=== PATIENT | male | born 1975 | race Caucasian/White ===

== ENCOUNTER 2017-07-24 10:50 | Emergency (ER) | payer SELFPAY ==
--- NOTE | 2017-07-24 13:12 | ED ---
GI/ HPI - HPI Summary HPI Summary: Pt here w/ FB in tip of penis. Thinks he's been passing a kidney stone since . Has a white, sharp object in urethra today - has a lot of pressure behind this and pain is focal to this area only. Dneies fever, chills, N/V/D, ab pain, flank pain. - History of Current Complaint Chief Complaint: EDUrogenitalProblems Time Seen by Provider: 07/24/17 11:22 Stated Complaint: NEEDS ANTIBIOTICS Hx Obtained From: Patient, Family/Professor Of Theology - father - reports he himself passed a stone so large urologist were surprised he passed it on his own Pain Intensity: 1 - Allergy/Home Medications Allergies/Adverse Reactions: Allergies Allergy/AdvReac Type Severity Reaction Status Date / Time Pollen Extract Allergy Mild watery Verified 03/25/14 08:45 eyes sneezing PMH/Surg Hx/FS Hx/Imm Hx Previously Healthy: Yes Endocrine/Hematology History: Denies: Hx Anticoagulant Therapy, Hx Blood Disorders, Hx Blood Transfusions, Hx Bone Marrow Disease, Hx Diabetes, Hx Systemic Lupus Erythematosus, Hx Sickle Cell Disease, Hx Thyroid Disease, Hx Anemia, Hx Unexplained Bleeding, Other Endocrine/Hematological Disorders Cardiovascular History: Denies: Hx Aneurysm, Hx Angina, Hx Angioplasty, Hx Auto Implanted Cardiovert Defib, Hx Cardiac Arrest, Hx Cardiomegaly, Hx Congenital Heart Disease, Hx Congestive Heart Failure, Hx Coronary Artery Disease, Hx Deep Vein Thrombosis, Hx Embolism, Hx Hypercholesterolemia, Hx Hypotension, Hx Hypertension, Hx Pacemaker/ICD, Hx Peripheral Vascular Disease, Hx Rheumatic Fever, Hx Syncope, Hx Valvular Heart Disease, Other Cardiovascular Problems/Disorders Respiratory History: Reports: Hx Seasonal Allergies Denies: Hx Asthma, Hx Chronic Bronchitis, Hx Chronic Obstructive Pulmonary Disease (COPD), Hx Cystic Fibrosis, Hx Lung Cancer, Hx Pleural Effusion, Hx Pneumonia, Hx Pulmonary Edema, Hx Pulmonary Embolism, Hx Sleep Apnea, Other Respiratory Problems/Disorders GI History: Denies: Hx Cirrhosis, Hx Crohn's Disease, Hx Diverticulosis - CURRENT DX OF PERFED DIVERTICULITIS, Hx Gall Bladder Disease, Hx Gastroesophageal Reflux Disease, Hx Gastrointestinal Bleed, Hx Hiatal Hernia, Hx Irritable Bowel, Hx Jaundice, Hx Obstructive Bowel, Hx Ileostomy, Hx Pyloric Stenosis, Hx Ulcer History: Denies: Hx Acute Renal Failure, Hx Benign Prostatic Hyperplasia, Hx Chronic Renal Failure, Hx Dialysis, Hx Kidney Infection, Hx Kidney Stones, Other Problems/Disorders Musculoskeletal History: Reports: Hx Back Problems - PULLED BACK MUSCLE FEW MONTHS AGO Denies: Hx Arthritis, Hx Bursitis, Hx Congenital Bone Abnormalities, Hx Fibromyalgia, Hx Gout, Hx Orthopedic Injury, Hx Osteoporosis, Hx Scoliosis, Hx Tendonitis, Other Musculoskeletal History Sensory History: Denies: Hx Cataracts, Hx Contacts or Glasses, Hx Eye Injury, Hx Eye Prosthesis, Hx Glaucoma, Hx Legally Blind, Hx Macular Degeneration, Hx Vision Problem, Hx Deafness, Hx Hearing Aid, Hx Hearing Problem, Other Sensory Impairments Opthamlomology History: Denies: Hx Cataracts, Hx Contacts or Glasses, Hx Eye Injury, Hx Eye Prosthesis, Hx Glaucoma, Hx Legally Blind, Hx Macular Degeneration, Hx Vision Problem, Other Sensory Impairments Neurological History: Denies: Hx Dementia, Hx Developmental Delay, Hx Headaches, Hx Migraine, Hx Nerve Disease, Hx Seizures, Hx Spinal Cord Injury, Hx Transient Ischemic Attacks (TIA), Other Neuro Impairments/Disorders Psychiatric History: Reports: Hx Substance Abuse - RECREATIONAL MARIJUANA Denies: Hx Anxiety, Hx Attention Deficit Hyperactivity Disorder, Hx Eating Disorder, Hx Depression, Hx Panic Disorder, Hx Post Traumatic Stress Disorder, Hx Inpatient Treatment, Hx Community Mental Health Tx, Hx Schizophrenia, Hx Bipolar Disorder, Hx Suicide Attempt, Hx of Violent Episodes Against Others, Other Psychiatric Issues/Disorders - Surgical History Surgery Procedure, Year, and Place: circumcision as adult 2009 Hx Anesthesia Reactions: No Infectious Disease History: No Infectious Disease History: Denies: Hx Clostridium Difficile, Hx Hepatitis, Hx Human Immunodeficiency Virus (HIV), Hx of Known/Suspected MRSA, Hx Shingles, Hx Tuberculosis, Hx Known/ Suspected VRE, Hx Known/Suspected VRSA, History Other Infectious Disease, Traveled Outside the [place] in Last 30 Days - Social History Alcohol Use: None Substance Use Type: Reports: Marijuana Substance Use Comment - Amount & Last Used: 03/24/14 Smoking Status (MU): Heavy Every Day Tobacco Smoker Type: Cigarettes Length of Time of Smoking/Using Tobacco: 13 Have You Smoked in the Last Year: Yes Physical Exam Vital Signs On Initial Exam: Initial Vitals Temp Pulse Resp BP Pulse Ox 99.4 F 79 16 135/74 98 07/24/17 10:51 07/24/17 10:51 07/24/17 10:51 07/24/17 10:51 07/24/17 10:51 - Leslie Coma Scale Coma Scale Total: 15 Diagnostics - Vital Signs Vital Signs Temp Pulse Resp BP Pulse Ox 07/24/17 10:51 99.4 F 79 16 135/74 98 - Laboratory Lab Statement: Any lab studies that have been ordered have been reviewed, and results considered in the medical decision making process. GIGU Course/Dx - Course Course Of Treatment: Pt appears to have passed a kidney stone today while in ED. He presented w/ FB observed at urethral opening - passed it while here. Collected stone nad sent for analysis. He plans to f/u w/ Dr. Thomas this week. Labs are ,,,,. Reviewed danger s/sx of when to return to ED. Pt agrees w / plan. - Diagnoses Provider Diagnoses: Lower urinary tract calculus Discharge - Discharge Plan Condition: Stable Disposition: HOME Patient Education Materials: Kidney Stones (ED) Forms: *Work Release Referrals: Joseph Thomas MD [Medical Doctor] - Additional Instructions: You appear to have passed a kidney stone today - this was sent to the lab for analysis. It is important that you follow-up with Dr. Thomas to discuss results as soon as they return and review prevention/treatment plan. Call Wednesday to schedule your appointment. In the meantime, avoid caffeine and drink plenty of liquids - water, etc. *If in the meantime, you develop return of pain, change in urination, fever, chills, abdominal pain, vomiting, return to ED
[2017-07-24 13:14] LABS: Urine Bacteria 1+ (Absent); Urine Bilirubin Negative (Negative); Urine Glucose Negative (Negative); Urine Nitrite Negative (Negative)
[2017-07-24 13:43] LABS: Hematocrit 41 % (42-52); Hemoglobin 13.9 g/dl (14.0-18.0); Mean Corpuscular HGB Conc 34 g/dl (31-36); Mean Corpuscular Hemoglobin 31 pg (27-31); Mean Corpuscular Volume 91 fL (80-94); Mean Platelet Volume 7 um3 (7.4-10.4); Red Blood Count 4.49 10^6/ul (4.0-5.4); Red Cell Distribution Width 13 % (10.5-15); White Blood Count 11.4 10^3/ul (3.5-10.8)
[2017-07-24 13:56] LABS: BUN/Creatinine Ratio 17.6 (8-20); C Reactive Protein 6.71 mg/L (< 5.00); Calcium 9.3 mg/dL (8.6-10.3); EGFR African American 150.7 (>60); EGFR Non-African American 117.1 (>60); Potassium 3.9 mmol/L (3.5-5.0)
[2017-07-24 14:27] VITALS: BP 143/70
== END 2017-07-24 14:26 | disposition home or self-care (01) ==
LOC: ED 10:50
DX: N21.9 Calculus of lower urinary tract, unspecified (principal)
CPT/HCPCS: 36415; 80048; 81003; 81015; 82365; 83605; 85025; 86140; 87086; 88300; 99282

== ENCOUNTER 2018-03-13 00:37 | Emergency (ER) | payer SELFPAY ==
[2018-03-13] MEDS ORDERED: Clindamycin CAP* 150 MG PO ONE (02:18)
--- NOTE | 2018-03-13 02:19 | ED ---
Complex/Multi-Sys Presentation - HPI Summary HPI Summary: This is merrill Perodmo documenting for attending Dr. Tonya Vegas MD. Pt is 42 y/o M who presents to ED c/o dental pain since yesterday. Today the pain is less than yesterday, but he noted left side of his face was swollen today. Rates his pain a 7/10 in severity and describes it as aching. Denies fever. He has neglected teeth for a while. - History Of Current Complaint Chief Complaint: EDDentalPain Time Seen by Provider: 03/13/18 02:13 Hx Obtained From: Patient Onset/Duration: Lasting Hours, Still Present Severity Currently: Moderate - 7/10 Location: Pain At: - Teeth Character: Unable To Describe - Aching Associated Signs And Symptoms: Positive: Other - Dental Pain, left side of face swollen. Negative: Fever - Allergies/Home Medications Allergies/Adverse Reactions: Allergies Allergy/AdvReac Type Severity Reaction Status Date / Time MS Pollen Extract Allergy Mild watery Verified 03/25/14 08:45 [Pollen Extract] eyes sneezing PMH/Surg Hx/FS Hx/Imm Hx Endocrine/Hematology History: Denies: Hx Anticoagulant Therapy, Hx Blood Disorders, Hx Blood Transfusions, Hx Bone Marrow Disease, Hx Diabetes, Hx Systemic Lupus Erythematosus, Hx Sickle Cell Disease, Hx Thyroid Disease, Hx Anemia, Hx Unexplained Bleeding, Other Endocrine/Hematological Disorders Cardiovascular History: Denies: Hx Aneurysm, Hx Angina, Hx Angioplasty, Hx Auto Implanted Cardiovert Defib, Hx Cardiac Arrest, Hx Cardiomegaly, Hx Congenital Heart Disease, Hx Congestive Heart Failure, Hx Coronary Artery Disease, Hx Deep Vein Thrombosis, Hx Embolism, Hx Hypercholesterolemia, Hx Hypotension, Hx Hypertension, Hx Pacemaker/ICD, Hx Peripheral Vascular Disease, Hx Rheumatic Fever, Hx Syncope, Hx Valvular Heart Disease, Other Cardiovascular Problems/Disorders Respiratory History: Reports: Hx Seasonal Allergies Denies: Hx Asthma, Hx Chronic Bronchitis, Hx Chronic Obstructive Pulmonary Disease (COPD), Hx Cystic Fibrosis, Hx Lung Cancer, Hx Pleural Effusion, Hx Pneumonia, Hx Pulmonary Edema, Hx Pulmonary Embolism, Hx Sleep Apnea, Other Respiratory Problems/Disorders GI History: Denies: Hx Cirrhosis, Hx Crohn's Disease, Hx Diverticulosis - CURRENT DX OF PERFED DIVERTICULITIS, Hx Gall Bladder Disease, Hx Gastroesophageal Reflux Disease, Hx Gastrointestinal Bleed, Hx Hiatal Hernia, Hx Irritable Bowel, Hx Jaundice, Hx Obstructive Bowel, Hx Ileostomy, Hx Pyloric Stenosis, Hx Ulcer History: Denies: Hx Acute Renal Failure, Hx Benign Prostatic Hyperplasia, Hx Chronic Renal Failure, Hx Dialysis, Hx Kidney Infection, Hx Kidney Stones, Other Problems/Disorders Musculoskeletal History: Reports: Hx Back Problems - PULLED BACK MUSCLE FEW MONTHS AGO Denies: Hx Arthritis, Hx Bursitis, Hx Congenital Bone Abnormalities, Hx Fibromyalgia, Hx Gout, Hx Orthopedic Injury, Hx Osteoporosis, Hx Scoliosis, Hx Tendonitis, Other Musculoskeletal History Sensory History: Denies: Hx Cataracts, Hx Contacts or Glasses, Hx Eye Injury, Hx Eye Prosthesis, Hx Glaucoma, Hx Legally Blind, Hx Macular Degeneration, Hx Vision Problem, Hx Deafness, Hx Hearing Aid, Hx Hearing Problem, Other Sensory Impairments Opthamlomology History: Denies: Hx Cataracts, Hx Contacts or Glasses, Hx Eye Injury, Hx Eye Prosthesis, Hx Glaucoma, Hx Legally Blind, Hx Macular Degeneration, Hx Vision Problem, Other Sensory Impairments Neurological History: Denies: Hx Dementia, Hx Developmental Delay, Hx Headaches, Hx Migraine, Hx Nerve Disease, Hx Seizures, Hx Spinal Cord Injury, Hx Transient Ischemic Attacks (TIA), Other Neuro Impairments/Disorders Psychiatric History: Reports: Hx Substance Abuse - RECREATIONAL MARIJUANA Denies: Hx Anxiety, Hx Attention Deficit Hyperactivity Disorder, Hx Eating Disorder, Hx Depression, Hx Panic Disorder, Hx Post Traumatic Stress Disorder, Hx Inpatient Treatment, Hx Community Mental Health Tx, Hx Schizophrenia, Hx Bipolar Disorder, Hx Suicide Attempt, Hx of Violent Episodes Against Others, Other Psychiatric Issues/Disorders - Surgical History Surgery Procedure, Year, and Place: circumcision as adult 2009 Hx Anesthesia Reactions: No Infectious Disease History: No Infectious Disease History: Denies: Hx Clostridium Difficile, Hx Hepatitis, Hx Human Immunodeficiency Virus (HIV), Hx of Known/Suspected MRSA, Hx Shingles, Hx Tuberculosis, Hx Known/ Suspected VRE, Hx Known/Suspected VRSA, History Other Infectious Disease, Traveled Outside the [place] in Last 30 Days - Family History Known Family History: Positive: Hypertension, Diabetes - Social History Alcohol Use: None Substance Use Type: Reports: Marijuana Substance Use Comment - Amount & Last Used: 03/24/14 Smoking Status (MU): Heavy Every Day Tobacco Smoker Type: Cigarettes Length of Time of Smoking/Using Tobacco: 13 Have You Smoked in the Last Year: Yes Review of Systems Negative: Fever Positive: Dental Pain All Other Systems Reviewed And Are Negative: Yes Physical Exam - Summary Physical Exam Summary: VITAL SIGNS: Reviewed. GENERAL: Patient is a well-developed and nourished male who is lying comfortable in the stretcher. Patient is not in any acute respiratory distress. HEAD AND FACE: Swelling of left side of face. No signs of trauma. No ecchymosis , hematomas or skull depressions. No sinus tenderness. EYES: PERRLA, EOMI x 2, No injected conjunctiva, no nystagmus. EARS: Hearing grossly intact. Ear canals and tympanic membranes are within normal limits. MOUTH: Tenderness over left upper gum with dentation. NECK: Supple, trachea is midline, no adenopathy, no JVD, no carotid bruit, no c- spine tenderness, neck with full ROM. CHEST: Symmetric, no tenderness at palpation LUNGS: Clear to auscultation bilaterally. No wheezing or crackles. CVS: Regular rate and rhythm, S1 and S2 present, no murmurs or gallops appreciated. ABDOMEN: Soft, non-tender. No signs of distention. No rebound no guarding, and no masses palpated. Bowel sounds are normal. EXTREMITIES: FROM in all major joints, no edema, no cyanosis or clubbing. NEURO: Alert and oriented x 3. No acute neurological deficits. Speech is normal and follows commands. SKIN: Dry and warm Triage Information Reviewed: Yes Vital Signs On Initial Exam: Initial Vitals Temp Pulse Resp BP Pulse Ox 97.8 F 79 18 142/79 99 03/13/18 00:44 03/13/18 00:44 03/13/18 00:44 03/13/18 00:44 03/13/18 00:44 Vital Signs Reviewed: Yes Diagnostics - Vital Signs Vital Signs Temp Pulse Resp BP Pulse Ox 03/13/18 00:44 97.8 F 79 18 142/79 99 - Laboratory Lab Statement: Any lab studies that have been ordered have been reviewed, and results considered in the medical decision making process. Complex Multi-Symp Course/Dx Course Of Treatment: Pt is 42 y/o M who presents to ED c/o dental pain since yesterday. Rates his pain a 7/10 in severity. Notes left side facial swelling and denies fever. Physical exam revealed swelling of left side of face and tenderness over left upper gum with dentation. In the ED course pt was given Cleocin. Pt does not want any pain medication and is given a prescription of Clindamycin. Pt is diagnosed with gingivitis and toothe ache and discharged home. He is told to follow up with his dentist and is agreeable with this plan. - Diagnoses Provider Diagnoses: Gingivitis, Tooth ache Discharge - Sign-Out/Discharge Documenting (check all that apply): Patient Departure - Discharge - Discharge Plan Condition: Stable Disposition: HOME Prescriptions: Clindamycin Cap(NF) [Clindamycin Cap 300 mg Cap(NF)] 300 mg PO Q6H #30 cap Patient Education Materials: Gingivitis (ED), Toothache (ED) Referrals: [facility] [Outside] Additional Instructions: Follow up with your dentist on Wednesday. RETURN TO ED FOR ANY NEW OR WORSENING SYMPTOMS.
[2018-03-13 02:54] VITALS: BP 144/86
== END 2018-03-13 02:53 | disposition home or self-care (01) ==
LOC: ED 00:37
DX: K05.10 Chronic gingivitis, plaque induced (principal); K08.89 Other specified disorders of teeth and supporting structures; F17.210 Nicotine dependence, cigarettes, uncomplicated
CPT/HCPCS: 99282; A9270-GY

== ENCOUNTER 2019-10-29 21:09 | Emergency (ER) | payer SELFPAY ==
[2019-10-29 21:12] VITALS: BP 136/81
--- NOTE | 2019-10-29 21:20 | ED ---
Complex/Multi-Sys Presentation - HPI Summary HPI Summary: 44 y/o male presented to [facility] for right sided swelling in his mouth and a claimed abscess. Pain currently rated 3/10 has been present for days and pt notes pain has worsened since 3 days ago. He has been taking ibuprofen for pain. Pt was seen in the ED previously for right sided facial swelling without pain. Pt notes hx of an adult circumcision. Pt smokes cigarettes and is trying to quit, and also smokes marijuana. He does not drink alcohol. Medications reviewed. Allergies noted. Home Medications Medication Instructions Recorded Confirmed Type Sennosides [Ex-Lax] 15 mg PO DAILY PRN 03/25/14 03/13/18 History Clindamycin Cap(NF) [Clindamycin 300 mg PO Q6H #30 cap 03/13/18 Rx Cap 300 mg Cap(NF)] Clindamycin Cap(NF) [Clindamycin 300 mg PO Q6H #30 cap 03/13/18 Rx Cap 300 mg Cap(NF)] Amoxicillin/Clavulanate TAB* 875 mg PO BID 7 Days #14 tab 10/29/19 Rx [Augmentin TAB 875*] - History Of Current Complaint Chief Complaint: EDDentalPain Time Seen by Provider: 10/29/19 21:14 Hx Obtained From: Patient Onset/Duration: Lasting Days, Still Present Timing: Days Severity Currently: Mild Location: Pain At: - right side of mouth Related History: Similar Episode/Diagnosed As: - previous facial swelling without pain - Allergies/Home Medications Allergies/Adverse Reactions: Allergies Allergy/AdvReac Type Severity Reaction Status Date / Time pollen extracts Allergy Sneezing Verified 10/29/19 21:13 Home Medications: Home Medications Amoxicillin/Clavulanate TAB* [Augmentin TAB 875*] 875 mg PO BID 7 Days #14 tab 10/29/19 [Rx] PMH/Surg Hx/FS Hx/Imm Hx Endocrine/Hematology History: Denies: Hx Anticoagulant Therapy, Hx Blood Disorders, Hx Blood Transfusions, Hx Bone Marrow Disease, Hx Diabetes, Hx Systemic Lupus Erythematosus, Hx Sickle Cell Disease, Hx Thyroid Disease, Hx Anemia, Hx Unexplained Bleeding, Other Endocrine/Hematological Disorders Cardiovascular History: Denies: Hx Aneurysm, Hx Angina, Hx Angioplasty, Hx Auto Implanted Cardiovert Defib, Hx Cardiac Arrest, Hx Cardiomegaly, Hx Congenital Heart Disease, Hx Congestive Heart Failure, Hx Coronary Artery Disease, Hx Deep Vein Thrombosis, Hx Embolism, Hx Hypercholesterolemia, Hx Hypotension, Hx Hypertension, Hx Pacemaker/ICD, Hx Peripheral Vascular Disease, Hx Rheumatic Fever, Hx Syncope, Hx Valvular Heart Disease, Other Cardiovascular Problems/Disorders Respiratory History: Reports: Hx Seasonal Allergies Denies: Hx Asthma, Hx Chronic Bronchitis, Hx Chronic Obstructive Pulmonary Disease (COPD), Hx Cystic Fibrosis, Hx Lung Cancer, Hx Pleural Effusion, Hx Pneumonia, Hx Pulmonary Edema, Hx Pulmonary Embolism, Hx Sleep Apnea, Other Respiratory Problems/Disorders GI History: Denies: Hx Cirrhosis, Hx Crohn's Disease, Hx Diverticulosis - CURRENT DX OF PERFED DIVERTICULITIS, Hx Gall Bladder Disease, Hx Gastroesophageal Reflux Disease, Hx Gastrointestinal Bleed, Hx Hiatal Hernia, Hx Irritable Bowel, Hx Jaundice, Hx Obstructive Bowel, Hx Ileostomy, Hx Pyloric Stenosis, Hx Ulcer History: Denies: Hx Acute Renal Failure, Hx Benign Prostatic Hyperplasia, Hx Chronic Renal Failure, Hx Dialysis, Hx Kidney Infection, Hx Kidney Stones, Other Problems/Disorders Musculoskeletal History: Reports: Hx Back Problems - PULLED BACK MUSCLE FEW MONTHS AGO Denies: Hx Arthritis, Hx Bursitis, Hx Congenital Bone Abnormalities, Hx Fibromyalgia, Hx Gout, Hx Orthopedic Injury, Hx Osteoporosis, Hx Scoliosis, Hx Tendonitis, Other Musculoskeletal History Sensory History: Denies: Hx Cataracts, Hx Contacts or Glasses, Hx Eye Injury, Hx Eye Prosthesis, Hx Glaucoma, Hx Legally Blind, Hx Macular Degeneration, Hx Vision Problem, Hx Deafness, Hx Hearing Aid, Hx Hearing Problem, Other Sensory Impairments Opthamlomology History: Denies: Hx Cataracts, Hx Contacts or Glasses, Hx Eye Injury, Hx Eye Prosthesis, Hx Glaucoma, Hx Legally Blind, Hx Macular Degeneration, Hx Vision Problem, Other Sensory Impairments Neurological History: Denies: Hx Dementia, Hx Developmental Delay, Hx Headaches, Hx Migraine, Hx Nerve Disease, Hx Seizures, Hx Spinal Cord Injury, Hx Transient Ischemic Attacks (TIA), Other Neuro Impairments/Disorders Psychiatric History: Reports: Hx Substance Abuse - RECREATIONAL MARIJUANA Denies: Hx Anxiety, Hx Attention Deficit Hyperactivity Disorder, Hx Eating Disorder, Hx Depression, Hx Panic Disorder, Hx Post Traumatic Stress Disorder, Hx Inpatient Treatment, Hx Community Mental Health Tx, Hx Schizophrenia, Hx Bipolar Disorder, Hx Suicide Attempt, Hx of Violent Episodes Against Others, Other Psychiatric Issues/Disorders - Surgical History Surgery Procedure, Year, and Place: circumcision as adult 2009 Hx Anesthesia Reactions: No Infectious Disease History: No Infectious Disease History: Denies: Hx Clostridium Difficile, Hx Hepatitis, Hx Human Immunodeficiency Virus (HIV), Hx of Known/Suspected MRSA, Hx Shingles, Hx Tuberculosis, Hx Known/ Suspected VRE, Hx Known/Suspected VRSA, History Other Infectious Disease, Traveled Outside the [place] in Last 30 Days - Family History Known Family History: Positive: Hypertension, Diabetes - Social History Alcohol Use: None Substance Use Type: Reports: Marijuana Substance Use Comment - Amount & Last Used: 03/24/14 Smoking Status (MU): Heavy Every Day Tobacco Smoker Type: Cigarettes Length of Time of Smoking/Using Tobacco: 13 Have You Smoked in the Last Year: Yes Review of Systems Negative: Fever - vitals show temp at 96.6F Positive: Other - right sided facial swelling All Other Systems Reviewed And Are Negative: Yes Physical Exam - Summary Physical Exam Summary: Constitutional: Well-developed, Well-nourished, Alert. (-) Distressed Skin: Warm, Dry HENT: Normocephalic; Atraumatic; poor dentition; teeth 1 and 2 tender with percussion; right sided anterior cervical lymphadenopathy; no submandibular or sublingual swelling; area of swelling to right upper jaw no fluctuance or induration Eyes: Conjunctiva normal Neck: Musculoskeletal ROM normal neck. (-) JVD, (-) Stridor, (-) Tracheal deviation Cardio: Rhythm regular, rate normal, Heart sounds normal; Intact distal pulses; Radial pulses are 2+ and symmetric. (-) Murmur Pulmonary/Chest wall: Effort normal. (-) Respiratory distress, (-) Wheezes, (-) Rales Abd: Soft, (-) tenderness, (-) Distension, (-) Guarding, (-) Rebound Musculoskeletal: (-) Edema Lymph: (-) Cervical adenopathy Neuro: Alert, Oriented x3 Psych: Mood and affect Normal Triage Information Reviewed: Yes Vital Signs On Initial Exam: Initial Vitals Temp Pulse Resp BP Pulse Ox 96.6 F 79 19 136/81 98 10/29/19 21:10 10/29/19 21:10 10/29/19 21:10 10/29/19 21:10 10/29/19 21:10 Vital Signs Reviewed: Yes Procedures - Sedation Patient Received Moderate/Deep Sedation with Procedure: No Diagnostics - Vital Signs Vital Signs Temp Pulse Resp BP Pulse Ox 10/29/19 21:10 96.6 F 79 19 136/81 98 - Laboratory Lab Statement: Any lab studies that have been ordered have been reviewed, and results considered in the medical decision making process. Complex Multi-Symp Course/Dx Course Of Treatment: Patient is here with an early dental infection. Patient has no drainable abscess on physical exam. Patient has no evidence of deep space neck infection. Patient was started on Augmentin. - Diagnoses Provider Diagnoses: Dental infection, Swelling of right side of face Discharge ED - Sign-Out/Discharge Documenting (check all that apply): Patient Departure - dc - Discharge Plan Condition: Stable Disposition: HOME Prescriptions: Amoxicillin/Clavulanate TAB* [Augmentin TAB 875*] 875 mg PO BID 7 Days #14 tab Patient Education Materials: Dental Abscess (ED), Toothache (ED) Forms: *Work Release Referrals: Cameron Borja DDS [Doctor of Dental Medicine] - Additional Instructions: PLEASE RETURN TO EMERGENCY DEPARTMENT FOR TROUBLE BREATHING, INABILITY TO SWALLOW, SEVERE SWELLING UNDER YOUR JAW OR TONGUE, OR OTHER CONCERNING SYMPTOMS. Take antibiotics as prescribed. Take Tylenol or Motrin for pain. Please find a dentist or you will continue to have recurring dental infections. Please make all follow-ups in 1-3 days unless I advise you otherwise. - Billing Disposition and Condition Condition: STABLE Disposition: Home - Attestation Statements Document Initiated by Kailee: Yes Documenting Scribe: Spencer Irvin Provider For Whom Kailee is Documenting (Include Credential): Michele Lopez MD Scribe Attestation: Spencer Campbell, scribed for Michele Lopez MD on 10/31/19 at 1054. Scribe Documentation Reviewed: Yes Provider Attestation: The documentation as recorded by the Spencer momin accurately reflects the service I personally performed and the decisions made by me, Michele Lopez MD Status of Scribe Document: Viewed
[2019-10-29] MEDS ORDERED: HYDROcodone/ACETAMIN 5-325 MG* 1 TAB PO ONE (21:22)
[2019-10-29] MEDS ORDERED: Amoxicillin/Clavulanate TAB* 875 MG PO ONE (21:22)
== END 2019-10-29 21:50 | disposition home or self-care (01) ==
LOC: ED 21:09
DX: K04.7 Periapical abscess without sinus (principal); F17.210 Nicotine dependence, cigarettes, uncomplicated
CPT/HCPCS: 99282; A9270-GY